=== PATIENT | male | born 1995 | race Caucasian/White ===

== ENCOUNTER 2022-04-06 18:25 | Emergency (ER) | payer BC ==
[~2022-04-06] VITALS: Ht 185.4 cm; Wt 81.6 kg
[2022-04-06 18:42] VITALS: BP_SYST 134; BP_SYST 140; BP_DIAS 82; BP_DIAS 86
--- NOTE | 2022-04-06 19:37 | ER.PDOC ---
General Chief Complaint: Extremities Stated Complaint: LEFT ARM PAIN Time seen by MD: 19:30 Source: patient Exam Limitations: no limitations History of Present Illness Initial Comments This 27-year-old white male comes in with complaint that he somehow strained his right shoulder/biceps insertion point at work this morning stated he was moving heavy piece of metal equipment and was moving around not exactly sure how he twisted or turned his arm as he is telling me the story that he had a puts his arm to full range of motion with no limitations whatsoever in any direction. When I ask him where it hurts he points to the biceps tendon groove area only. He has no other injuries no other complaints. Occurred: this morning Where: work Severity: mild Modifying Factors: pain on movement (Patient does not have any pain on movement that is not under force. When I put him under force had a little bit of t enderness on the insertion of the biceps tendon) Allergies: Coded Allergies: No Known Allergies (Unverified , 04/06/22) Past Medical History Medical History: asthma Surgical History: no surgical history Social History Smoking: non-smoker Alcohol Use: occassionally Drug Use: none Review of Systems Constitutional: denies no symptoms reported, denies see HPI, denies chills, denies diaphoresis, denies fever, denies malaise, denies weakness, denies other EENTM: denies no symptoms reported, denies see HPI, denies eye pain, denies blurred vision, denies tearing, denies double vision, denies ear pain, denies ear discharge, denies nose pain, denies nose congestion, denies throat pain, denies throat swelling, denies mouth pain, denies mouth swelling, denies other Respiratory: denies no symptoms reported, denies see HPI, denies cough, denies orthopnea, denies shortness of breath, denies stridor, denies wheezing, denies other Cardiovascular: denies no symptoms reported, denies see HPI, denies chest pain, denies edema, denies palpitations, denies syncope, denies other Gastrointestinal: denies no symptoms reported, denies see HPI, denies abdominal pain, denies constipation, denies diarrhea, denies nausea, denies vomiting, denies other Genitourinary: denies no symptoms reported, denies see HPI, denies discharge, denies dysuria, denies frequency, denies hematuria, denies pain, denies other Musculoskeletal: see HPI; denies back pain, denies gout, denies joint pain, denies joint swelling; muscle pain (Tenderness over biceps tendon); denies muscle stiffness, denies neck pain, denies other Skin: denies no symptoms reported, denies see HPI, denies change in color, rodyd es change in hair/nails, denies dryness, denies lesions, denies lumps, denies rash, denies other Psychiatric/Neurological: denies no symptoms reported, denies see HPI, denies anxiety, denies depressed, denies emotional problems, denies headache, denies numbness, denies paresthesia, denies pre-existing deficit, denies seizure, denies tingling, denies tremors, denies weakness, denies other Physical Exam General Appearance: Alert, No Apparent Distress Hand: nml inspection, non-tender Wrist: nml inspection, non-tender, nml ROM Forearm/Elbow: nml inspection, non-tender, nml ROM Arm/Shoulder: tenderness (Tenderness over the biceps tendon in the bicipital groove at the humeral head. No tenderness anywhere else. Range of motion is excellent in all directions.) Neuro/Vasc/Tendon: sensation nml, motor nml, no vascular compromise, tendon function nml Skin: warm/dry Head/ENT: nml inspection, pharynx nml Neck/Back: nml inspection, non-tender Respiratory: chest non-tender, breath sounds nml CVS: heart sounds normal Abdomen: non-tender, no organomegaly Results/Orders Results/Orders Vital Signs Date Time Temp Pulse Resp B/P (MAP) Pulse Ox O2 Delivery O2 Flow Rate FiO2 04/06/22 18:42 97.9 82 16 134/86 (102) 98 Room Air* 0 21 04/06/22 18:42 97.9 82 16 98 04/06/22 18:42 97.9 82 16 ER DEPART Departure Time of Disposition: 19:40 Disposition: 01 HOME / SELF CARE / HOMELESS Impression: Primary Impression: Strain of biceps tendon Condition: Improved Referrals: PCP,UNKNOWN (PCP) PRIMARY CARE PROVIDER Comments Motrin 800 mg, 1 p.o. 3-4 times a day as needed pain, dispense 90 Duration or Time Spent with Pa: 10m SONAL QUIROZ MD Apr 06, 2022 19:37
[2022-04-06 19:38] VITALS: BP 126/61
== END 2022-04-06 19:50 | disposition home or self-care (01) ==
LOC: ER 18:25
DX: S46.211A Strain of muscle, fascia and tendon of other parts of biceps, right arm, initial encounter (principal); F10.20 Alcohol dependence, uncomplicated; J45.909 Unspecified asthma, uncomplicated; X50.0XXA Overexertion from strenuous movement or load, initial encounter; Y93.89 Activity, other specified; Y92.89 Other specified places as the place of occurrence of the external cause; Y99.8 Other external cause status
CPT/HCPCS: 99281